=== PATIENT | female | born 2005 | race African-American/Black ===

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

== ENCOUNTER 2025-02-01 04:20 | Emergency (ER) | payer OTHER, SELFPAY ==
[2025-02-01 04:27] VITALS: BP 152/113; RESP 16; O2SAT 99
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
--- NOTE | 2025-02-01 04:43 | PC.NURSE ---
pt states she would like something for pain and to go home. MD at bedside.
[2025-02-01] MEDS: IBUPROFEN 400 MG TABLET 800 MG PO (04:47)
[2025-02-01] MEDS: ACETAMINOPHEN 500 MG TABLET 1000 MG PO (04:48)
--- OUTSIDE RECORDS SUMMARY | 2025-02-01 04:50 | XMS_ITS | Data Portability ---
Author Organization 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 Plan of Treatment Reminders Order Date Submit Date Provider Last Modified By Organization Details Last Modified Time Details Appointments None recorded . Lab HbA1c (hemoglo bin A1c), blood 2023 024 LEN BIANCA, [address] [place] [address], [address], [place], [address], 4 11:16:30 lipid panel, serum 2023 024 ALLEENE BIANCA, [address] [place] [address], [address], [place], [address], 4 11:16:28 pregnanc y test, urine 2023 024 lily In-Office Order, Internal Use Only DO Not Attach Compendium DO Not Attach Compendium, Do Not Delete/merge, [id number] 16:44:04 TSH, ultra-se nsitive, serum 2023 024 ALLEENE BIANCA, [address] [place] [address], [address], [place], [address], 4 11:16:29 vitamin D, 25-hydro xy, total, serum 2023 024 [facility], [address] [facility], [address], [place], [address], 11:16:31 Referral None recorded . Procedures None recorded . Surgeries None recorded . Imaging None recorded . Medication Orders None recorded . Patient TargetsNo targets recorded. Patient Instructions Encounter Date Encounter Id Patient Instructions Last Modified By Organization Details Last Modified Time 09/04/2023 [id number] A healthy lifestyle: care instructions [email or web address] Not available 09/04/2023 16:02:28 I was present and available in the family medicine clinic to discuss the patient's care during the appointment and the case was discussed with me. I agree with the resident's assessment and plan as documented. HL [email or web address] Not available 09/06/2023 16:22:40 Reason for Referral None Reported. Results Created Date Observation Date Name Description Value Unit Range Abnormal Flag Note LastModifiedBy Organization Detail LastModifiedTime 09/04/1909/05/2023 LIPID PANEL AND CHOL/ HDL RATIO cholesterol, total 189 mg/dL 100-16 9 above high normal Not Available [facility] ([facility]) [address] [place], [address], 09/05/2023 11:16:28 09/04/19 24 09/05/2023 LIPID PANEL AND CHOL/ HDL RATIO triglyceride s 79 mg/dL 0-89 Not Available [facility] ([facility]) [address] [place], [address], 09/05/2023 11:16:28 09/04/19 24 09/05/2023 LIPID PANEL AND CHOL/ HDL RATIO HDL cholesterol 45 mg/dL >39 Not Available [facility] ([facility]) [address] [place], [address], 09/05/2023 11:16:28 09/04/19 24 09/05/2023 LIPID PANEL AND CHOL/ HDL RATIO VLDL cholesterol shayan 15 mg/dL 5-40 Not Available [facility] ([facility]) [address] [place], [address], 09/05/2023 11:16:28 09/04/19 24 09/05/2023 LIPID PANEL AND CHOL/ HDL RATIO LDL chol calc ([facility]) 129 mg/dL 0-109 above high normal Not Available [facility] ([facility]) [address] [place], [address], 09/05/2023 11:16:28 09/04/19 24 09/05/2023 LIPID PANEL AND CHOL/ HDL RATIO LDL calc comment: - Test not perfo rmed Not Available [facility] ([facility]) [address] [facility], [place], [address], 09/05/2023 11:16:28 09/04/19 24 09/05/2023 LIPID PANEL AND CHOL/ HDL RATIO T. chol/HDL ratio 4.2 ratio 0.0-4. 4 T. Chol/ HDL Ratio Men Women 1/2 Avg.R isk 3.4 3.3 Avg.R isk 5.0 4.4 2X Avg.R isk 9.6 7.1 3X Avg.R isk 23.4 11.0 Not Available [facility] ([facility]) [address] [facility], [place], [address], 09/05/2023 11:16:28 09/04/19 24 09/05/2023 TSH RFX ON ABNOR MAL TO FREE T4 TSH 1.430 uIU/m L 0.450- 4.500 Not Available [facility] ([facility]) [address] [place], [address], 09/05/2023 11:16:29 09/04/19 24 09/05/2023 HEMOG LOBIN A1C hemoglobin A1C 5.7 % 4.8-5. 6 above high normal Predi abete s: 5.7 - 6.4 Diabe perez: >6.4 Glyce preston contr ol for adult s with diabe perez: <7.0 Not Available [facility] ([facility]) [address] [place], [address], 09/05/2023 11:16:30 09/04/19 24 09/05/2023 VITAM IN D, 25-HY DROXY vitamin D, 25-hydroxy 17.9 NG/mL 30.0-1 00.0 below low normal Vitam in D defic iency has been defin ed by the Insti tute of Medic ine and an Endoc rine Socie ty pract ice guide line as a level of serum 25-OH vitam in D less than 20 ng/mL (1,2) . The Endoc rine Socie ty went on to fur er defin e vitam in D insuf ficie ncy as a level betwe en 21 and 29 ng/mL (2). 1. IOM (Inst itute of Medic ine). 2009. Lucio ry refer ence intak es for calci um and D. Nelly saenz [place]: [facility] . 2. Alley ramon MF, Arnaud hurt [place], Guy off-F ericar i BEY, et al. Evalu ation , treat ment, and preve ntion of vitam in D defic iency : an Endoc rine Socie ty clini shayan pract ice guide line. JCEM. 2010; 96(7) :1911 -30. Not Available [facility] ([facility]) [address] [facility], [place], [address], 09/05/2023 11:16:31 09/04/19 24 09/04/2023 pregn kasey test, urine HCG negati ve Not Available In-Office Order Internal Use Only DO Not Attach Compendium DO Not Attach Compendium, Do Not Delete/merge, [id number] 09/04/2023 15:59:41 Result Notes None recorded. Problems Name Problem SNOMED Code Status Onset Date Resolution Date Notes Provider Name and Address Organization Details Recorded Time Polycystic ovary syndrome 234294372 Active 024 YOAV CUETO, Attn: Collin sun,[address], [place], [address] , [facility] 15:56:19 Problem Notes None recorded. Medical Equipment None Reported. Allergies No known drug allergies Medications Name Sig Start Date Stop Date Status Note LastModified by Organization Details LastModified Time cyclobenzapr ine 10 mg tablet active Not Available Not Available Not Available amoxicillin 500 mg capsule TAKE ONE CAPSULE BY MOUTH THREE TIMES DAILY X 7 DAYS active Not Available Not Available No t Available fluconazole 100 mg tablet TAKE 1 TABLET BY MOUTH ONCE A DAY FOR 2 DAYS active Not Available Not Available No t Available prednisone 10 mg tablet active Not Available Not Available Not Available lidocaine 4 % topical patch PLACE 1 PATCH OBN THE SKIN DAILY. REMOVE AND DISCARD PATCH WITHIN 12 HOURS OR DIRECTED active Not Available Not Available No t Available ketotifen 0.025 % (0.035 %) eye drops INSTILL 1 DROP IN BOTH EYES TWICE DAILY FOR ALLERGIC PINK EYE active Not Available Not Available No t Available methylpredni solone 4 mg tablets in a dose pack FOLLOW PACKAGE DIRECTIONS active Not Available Not Available N ot Available fluticasone propionate 50 mcg/actuatio n nasal spray,suspen jaiden SHAKE LIQUID AND USE 2 SPRAYS IN EACH NOSTRIL DAILY active Not Available Not Available No t Available amoxicillin 500 mg-potassium clavulanate 125 mg tablet TAKE 1 TABLET BY MOUTH TWICE DAILY FOR 7 DAYS active Not Available Not Available No t Available Vitals Date Recorded Body height Body mass index (BMI) Body mass index (BMI) [Percentile] Per age and sex Body weight Body temperature Heart rate Oxygen saturation Oxygen saturation in Arterial blood by Pulse oximetry Systolic And Diastolic Provider Name and Address Organization Details Last Updated DateTime 4 156.85 cm 43.1 kg/m2 99.61 % 572640. 82 g 97.8 [degF] 80 /min 98 % 98 % 117/82 mm[Hg] Libia Gilbert MA [facility] 4 15:45:34 Date Recorded Body height Provider Name an d Address Organization Details Last Updated DateTime 11/13/2023 156.85 cm Oneida Barrett MA [facility] 11/13/2023 10:18:50 Social History Question Answer Notes LastModified by Organizat ion Details LastModified Time Tobacco Smoking Status Never Smoker Oneida Barrett MA null, [facility] 11/13/2023 10:14:52 What Was The Date Of Your Most Recent Tobacco Screening? 11/13/2023 [email or web address] Information not available 11/13/2023 Sex: Unknown Functional Status None recorded. Mental Status None recorded. Family History Nothing Reported. Medical History No medical history recorded. Gynecological HistoryNo gynecological history recorded. Obstetrics History GPAL:G 0 P 0 0 0 0 Immunizations Vaccine Type Date Status Note Provider Nam e and Address Organization Details Recorded Time Hib, unspecified formulation 7 completed YOAV LYNN DO Attn: [employer] [place], [place], [address] [place] [address] [place] [facility] 09/04/2023 16:20:30 meningococcal B, OMV 4 completed YOAV LYNN DO Attn: [employer] [facility], [place], [place], [address] [place] [address] [place] [facility] 09/04/2023 16:20:30 HPV9 1 completed YOAV LYNN DO Attn: [employer] [place], [address] [place] [address] [place] [facility] 09/04/2023 16:20:30 HPV9 6 completed YOAV LYNN DO Attn: [employer] [place], [address] [place] [address] [place] [facility] 09/04/2023 16:20:30 IPV 8 completed YOAV LYNN DO Attn: [employer] [place], [address] [place] [address] [place] [facility] 09/04/2023 16:20:30 MMR 0 completed YOAV LYNN DO Attn: [employer] [place], [address] [place] [address] [place] [facility] 09/04/2023 16:20:30 MMRV 7 completed YOAV LYNN DO Attn: [employer] [place], [address] [place] [address] [place] [facility] 09/04/2023 16:20:30 meningococcal conjugate quadrivalent, MenACWY-TT (MCV4) 4 completed YOAV LYNN DO Attn: [employer] [facility], [place], [place], [address] [place] [address], [place] [facility] 09/04/2023 16:20:30 pneumococcal conjugate PCV 7 8 completed YOAV LYNN DO Attn: [employer] [facility], [place], [place], [address] [place] [address], [place] [facility] 09/04/2023 16:20:30 DTaP-IPV 0 completed YOAV LYNN DO Attn: [employer],[address] [facility], [place], [place], [address] [place] [address], [place] [facility] 09/04/2023 16:20:30 Tdap 6 completed YOAV LYNN DO Attn: [employer],[address] [facility], [place], [place], [address] [place] [address], [place] [facility] 09/04/2023 16:20:30 varicella 5 completed YOAV LYNN DO Attn: [employer],[address] [facility], [place], [place], [address] [place] [address], [place] [facility] 09/04/2023 16:20:30 Influenza, split virus, trivalent, preservative 5 completed YOAV LYNN DO Attn: [employer] [facility], [place], [place], [address] [place] [address], [place] [facility] 09/04/2023 16:20:30 influenza, split (incl. purified surface antigen) 0 completed YOAV LYNN DO Attn: [employer],[address] [facility], [place], [address] [place] [address], [place] [facility] 09/04/2023 16:20:31 Meningococcal MCV4O 5 completed YOAV LYNN DO Attn: [employer],[address] [facility], [place], [address] [place] [address], [place] [facility] 09/04/2023 16:20:31 DTaP 8 completed YOAV LYNN DO Attn: [facility],[address] [facility], [place], [address], [place] [facility] 09/04/2023 16:20:31 DTaP 9 completed YOAV LYNN DO Attn: [facility],[address] [facility], [place], [address], [place] [facility] 09/04/2023 16:20:31 DTaP-Hep B-IPV 7 completed YOAV LYNN DO Attn: [employer],[address] [facility], [place], [address], [place] [facility] 09/04/2023 16:20:31 Influenza, split virus, quadrivalent, PF 2 completed YOAV LYNN DO Attn: [employer],[address] [facility], [place], [address], [place] [facility] 09/04/2023 16:20:31 Past Encounters Encounter ID Performer Location Encounter Start Date Encounter Closed Date Diagnosis/Indication Diagnosis SNOMED-CT Code Diagnosis ICD10 Code Diagnosis IMO Codes Diagnosis Note [id number] Warren Paiz MD [facility] [address] [address] 09/04/2023 15:30:54 09/07/2023 12:39:04 Polycystic ovary syndrome 432050727 E28.2 Unclear if she meets 2/3 of [place] criteriaPa tient appears to be anovulator y, concern for given sexual hx- Will check A1c- check test- Discussed options for treatment of PCOS being mainly weight loss with possible metformin use and hormonal control. Patient contemplat ing patch Fatigue 64436649 R53.83 Occasional Will check TSH and Vit D levels- need to evaluate quality of sleep at next visit Obesity 486790307 E66.9 As discussed aboveBMI 43.1 At [facility] ed risk of cardiovascular disease 3642703279 2242559 Z91.89 Due for labs given risk Health Concerns Section Related Observation LastModified by Organization Detai ls LastModified Time None Recorded Concern Status LastModified by Organization Details LastModified Time None Recorded Advance Directives Directive None Recorded Payers Insurance Date Sequence Insurance Name Policy Number Policy Shankar Covered Member ID Shankar Member ID Guarantor Name 11/10/2023 1 [facility] (MEDICAID HMO) [id number] Kristie Bazan [id number] Ceci Cisneros Notes Date Note Type Note Provider Name and Address Organization Details Recorded Time 09/04/2023 text/html ROS as noted in the HPI Patient presents having been diagnosed with PCOS a year ago and she is interested in learning more about it and possibly treating it.She reports having sx of occasional fatigue and was having monthly periods, but since May has not had a period.She is sexually active and uses protection sometimesOf PCOS sx she reports semi-irregular periods (generally once a month but not in a 28d cycle, pt unsure of exact days), she denies hyperandrogenism (male pattern hair) and does not recall an US being performed. Unsure of labs that were performed.Other than feeling occasionally fatigued her main concern is her weight and concerned about how PCOS would affect her body. Interested in starting medication if applicable. Lupe Asher MD Attn: [employer],[address] [facility], [place], [address], [facility] 09/06/2023 16:22:47 OBGyn Episode No OBEpisode recorded.
--- OUTSIDE RECORDS SUMMARY | 2025-02-01 04:50 | XMS_ITS | Clinical Summary ---
Author Organization [place] [id number] [facility] Address [address] [place] [address] Care Team Providers Care Hr Receptionist Name Role Phone No, Physician Primary Care Provider [phone] Allergies No known active allergies Medications amoxicillin-cla vulanate (AUGMENTIN) 875-125 mg per tablet Take 1 tablet by mouth every 12 (twelve) hours 14 tablet 5 Active triamcinolone (KENALOG) 0.1 % ointment Apply topically 2 (two) times a day 30 g 2 5 Active fluconazole (DIFLUCAN) 150 mg tablet Take 1 tablet (150 mg total) by mouth once for 1 dose 1 tablet 5 01/04/20 25 Active Problems No known active problems Encounters Date Type Department Care Team Description 01/03/2025 Results Follow-Up [address] [address] Mary Bazan DO Vaginitis panel Vaginal, BLOOD MISC TO [place], BLOOD MISC TO [place], N. gonorrhoeae/C. trachomatis Amplification Endocervical 01/02/2025 3:00 PM CDT - 01/02/2025 11:59 PM CDT Hospital Encounter [place] [id number] [place] [address] Acute vaginitis; Screen for sexually transmitted diseases; Bacterial vaginosis Discharge Disposition: Discharge to home or self care 01/02/2025 2:00 PM CDT Office Visit [facility] [address] [place] [address] Mary Bazan, Encounter for annual routine gynecological examination (Primary Dx); Bacterial vaginosis; Screen for sexually transmitted diseases; Acute vaginitis; Missed menses 11/13/2024 10:30 PM CDT - 11/14/2024 12:52 AM CDT Emergency [facility] [address] [place] [address] Abdominal pain (Primary Dx) Discharge Disposition: Discharge to home or self care from Last 3 Months Immunizations Immunization Administration Dates Next Due DTaP 11/08/2008,10/25/2007 DTaP / Hep B / IPV 03/01/2007 DTaP / IPV 10/15/2009 HPV9 10/06/2020,07/15/2016,10/21/2015 Hep A, Pediatric 09/15/2017,11/07/2016 Hep B, Adolescent or Pediatric 07/15/2016,2015 HiB 03/01/2007 IPV 10/25/2007 Influenza, Quadrivalent, Spl it, Preservative Free, Intramuscular 01/24/2022 Influenza, Split 01/30/2010 Influenza, Trivalent, IM (MDV) 02/17/2015 MMR 10/15/2009 MMRV 03/01/2007 Meningococcal B, OMV (Bexsero) 05/09/2023 Meningococcal Conjugate (Menveo) 09/02/2014 Meningococcal MCV4P (Menactra) 05/09/2023,2014 Meningococcal Polysaccharide (Menomune) 11/08/19 17 Pneumococcal Conjugate 7-Valent 10/25/2007 Tdap 10/21/2015 Varicella 09/02/2014 Medical History Medical History Date Comments PCOS (polycystic ovarian syndrome) Family History Medical History Relation Name Comments Constipation Mother Relation Name Status Comments Mother Social History Tobacco Use Types Packs/Day Years Used Date Smoking Tobacco: Never Smokeless Tobacco: Never Tobacco Cessation:Counseling Given: Not Answered Personal Safety Answer Date Recorded Have you ever been in or are you currently in a harmful physical or emotional relationship or is someone making you feel afraid or unsafe? 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 Gender Identity Not on file Sexual Orientation Not on file Obstetrics History Para Term AB IAB SAB Ectopic Multiple Livin g Live Births 1 0 0 0 1 1 0 0 0 0 0 Date Outcome GA Total Labor Labor/2nd/3rd Weight Sex Type Anes PTL Melba A1 A5 Name Clin IAB Growth Chart Information Age Height Weight Jdylzt-snq-ignf th Percentile BMI Percentile Head Circum Head Circum Percentile Date 19 years 157.5 cm (5' 2) 111.1 kg (245 lb) 99.61%* 2024 19 years 109.7 kg (241 lb 13.5 oz) 2024 19 years 157.5 cm (5' 2) 2024 16 years 98.5 kg (217 lb 2.5 oz) 2021 14 years 154.9 cm (5' 1) 93.6 kg (206 lb 5.6 oz) 99.63%* 2020 12 years 152.4 cm (5') 59 kg (130 lb) 94.81%* 2017 12 years 65.8 kg (145 lb 1 oz) 2017 8 years 50.1 kg (110 lb 7.2 oz) 2013 8 years 46.8 kg (103 lb 2.8 oz) 2013 7 years 37.1 kg (81 lb 12.7 oz) 2012 * [facility] (Girls, 2-20 Years) Last Filed Vital Signs Vital Sign Reading Time Taken Comments Blood Pressure 128/88 01/02/2025 2:26 PM CDT Pulse 81 11/14/2024 12:45 AM CDT Temperature 37 C (98.6 F) 11/13/2024 8:59 PM CDT Respiratory Rate 18 11/14/2024 12:45 AM CDT Oxygen Saturation 99% 11/14/2024 12:45 AM CDT Inhaled Oxygen Concentration - - Weight 111.1 kg (245 lb) 01/02/2025 2:26 PM CDT Height 157.5 cm (5' 2) 01/02/2025 2:26 PM CDT Body Mass Index 44.81 01/02/2025 2:26 PM CDT Plan of Treatment Health Maintenance Due Date Last Done Comments Depression Screening 2005 Hepatitis C Screening 2005 Meningococcal B Vaccine (2 o f 2 - Bexsero SCDM 2-dose series) 11/07/2023 05/09/2023 Influenza Vaccine (#1) 2024 , 02/17/2015, 01/30/2010 DTaP/Tdap/Td Vaccine (6 - Td or Tdap) 10/20/2025 10/21/2015, 10/15/2009, 11/08/2008, Additional history exists Chlamydia and Gonorrhea (GC/ CT) Screening 01/02/2026 01/02/2025, 12/08/2021 Regular Well Visit/Exam 18-64 01/02/2026 01/02/2025 Pneumococcal vaccine <65 Completed 10/25/2007 Varicella Vaccines Completed 09/02/2014, 03/01/2007 Hepatitis B Screening Completed 07/15/2016 , 10/28/2015, 03/01/2007 HPV Vaccines Completed 10/06/2020, 06/26, 10/21/2015 Meningococcal Vaccine Completed 05/09/2023 , 11/07/2016, 09/13/2014, Additional history exists Procedures Procedure Name Priority Date/Time Associated Diagnosis Comments BLOOD MISC TO [place] Routine 01/02/2025 8: 48 PM CDT BLOOD MISC TO [place] Routine 01/02/2025 8: 48 PM CDT POCT HCG, URINE Routine 01/02/2025 3:06 PM CDT Missed menses N. GONORRHOEAE/C. TRACHOMATIS AMPLIFICATION Routine 01/02/2025 3:00 PM CDT Screen for sexually transmitted diseases VAGINITIS PANEL Routine 01/02/2025 3:00 PM CDT Acute vaginitis CT ABDOMEN PELVIS W CONTRAST ED 11/13/2024 11:39 PM CDT POCT HCG, URINE Routine 11/13/2024 10:03 PM CDT URINALYSIS, MICROSCOPIC ONLY STAT 11/13/2024 10:02 PM CDT URINALYSIS AND REFLEX TO MICROSCOPIC AND CULTURE STAT 11/13/2024 10:02 PM CDT EGFR STAT 11/13/2024 9:55 PM CDT DIFFERENTIAL AUTO STAT 11/13/2024 9:5 5 PM CDT LIPASE STAT 11/13/2024 9:55 PM CDT COMPREHENSIVE METABOLIC PANEL STAT 11/13/2024 9:55 PM CDT CBC WITH AUTO DIFFERENTIAL STAT 11/13/2024 9:55 PM CDT from Last 3 Months Results * BLOOD MISC TO [place] (01/02/2025 8:48 PM CDT) Test name, chem [facility] [place] ref Lab Misc See Footnote [facility] Comment: Test Result Flag Unit RefValue Mycoplasma genitalium, TMA, Varies Specimen Source: VAGINAL Mycoplasma genitalium Result Negative Negative ADDITIONAL INFORMATION This report is intended for use in clinical monitoring and management of patients. It is not intended for use in medical-legal applications. Test Performed by: [facility] - [address] [address] Laminating Machine Operator: Maximo Bolaños Ph.D.; CLIA# [id number] Blood 01/02/2025 8:48 PM CDT 01/03/2025 7:35 AM CDT Narrative [facility] - 01/05/2025 7:42 AM CDT Mycoplasma genitalium, TMA, Varies Mary Bazan LAB BLOOD ORDERABLES Fi nal Result Performing Organization Address City/[facility]/ZIP Co de Phone Number [facility] [address] [place] [address] [facility] * BLOOD MISC TO [place] (01/02/2025 8:48 PM CDT) Test name, chem URRP [facility] Lab Misc See Footnote ADALBERTO SEN Comment: Test Result Flag Unit RefValue Ureaplasma PCR Specimen source Vaginal Ureaplasma urealyticum Negative Not Applicable PCR Ureaplasma parvum PCR Negative Not Applicable ADDITIONAL INFORMATION This test was developed and its performance characteristics determined by [facility] in a manner consistent with CLIA requirements. This test has not been cleared or approved by the U.S. Food and Drug Administration. Test Performed by: [facility] [place] [address] Laminating Machine Operator: Maximo Bolaños Ph.D.; CLIA# [id number] Blood 01/02/2025 8:48 PM CDT 01/03/2025 7:32 AM CDT Narrative [facility] - 01/06/2025 6:51 PM CDT Ureaplasma PCR Mary Bazan DO LAB BLOOD ORDERABLES Fi nal Result Performing Organization Address [facility]/ZIP Co de Phone Number [facility] [place] [address] [place] [address] [facility] * POCT hCG, urine (01/02/2025 3:06 PM CDT) [facility] HCG, ur, POC Negative Negative Lot Number [id number] QC Backgroud Clear Acceptable QC Control Line Acceptable Urine 01/02/2025 3:06 PM CDT Mary Bazan DO POINT OF CARE TEST ORDE RABLES Final Result * N. gonorrhoeae/C. trachomatis Amplification Endocervical (01/02/2025 3:00 PM CDT) [facility] C. trachomatis Not Detected [facility] Comment:Testing performed by : [facility], [address] [place] [address]., [id number] N. gonorrhoeae Not Detected [facility] Comment: Interpretive Data This assay detects Chlamydia trachomatis and Neisseria gonorrhoeae by nucleic acid amplification testing (NAAT). This assay has been cleared by the [place] Food and Drug administration. The performance characteristics of this test have been verified by the [facility] Molecular Infectious Disease laboratory. The performance characteristics of this test have not been evaluated in individuals less than 14 years of age. Current Interpretive Data was last revised on 2023. Testing performed by: [facility], [address] [place] [address]., [address] Endocervical 01/02/2025 3:00 PM CDT 01/03/2025 10:45 AM CDT Mary Bazan DO LAB MICROBIOLOGY - GENE RAL ORDERABLES Final Result [place] [address] [place] [address] [facility] * (ABNORMAL) Vaginitis panel Vaginal (01/02/2025 3:00 PM CDT) [facility] Bacterial Vaginosis Not Detected Not Detected Comment:A negative result do es not preclude a possible infection. Results should be considered in conjunction with clinical presentation to determine the disease status. Debbie group Detected(A) Not Detected [facility] Comment:Debbie species can be present as commensal organisms in women; results should be considered in conjunction with clinical presentation to determine the disease status. Debbie glabrata/ krusei Not Detected Not Detected [facility] Trichomonas DNA Not Detected Not Detected [facility] Vaginal 01/02/2025 3:00 PM CDT 01/02/2025 9:03 PM CDT Narrative [facility] - 01/02/2025 10:59 PM CDT The [employer] Xpert Xpress MVP test detects DNA targets from anaerobic bacteria associated with bacterial vaginosis, Debbie species associated with vulvovaginal candidiasis, and Trichomonas vaginalis by nucleic acid amplification testing (NAAT). Results should be interpreted in conjunction with other clinical data. This test cannot be used to assess therapeutic success or failure because target nucleic acids may persist following antimicrobial therapy. This test has been cleared by the [place] Food and Drug Administration to aid in the diagnosis of vaginal infections in symptomatic women ages 14 and older. The performance characteristics of this test have been verified by the [facility]. Mary Bazan DO LAB MICROBIOLOGY - GENE [facility] ORDERABLES Final Result [facility] [address] [place] [address] * CT Abdomen Pelvis W Contrast (11/13/2024 11:39 PM CDT) Anatomical Region Laterality Modality Body N/A Computed Tomogra phy 11/13/2024 11:4 2 PM CDT Narrative 11/13/2024 11:49 PM CDT EXAM DESCRIPTION: CT ABDOMEN PELVIS W CONTRAST REASON FOR STUDY: Abdominal pain, acute, nonlocalized c/o generalized Abdominal pain accompanied by constipation and rectal pain started 2 days ago. Pt reports pain scale 6/10, described as intermittent aching and pressure. Hx of constipation. Pt reports administering stool softener, enema, magnesium citrate and linzess today with no relief. Pt denies fever, chills, N/V/D or urinary symptoms. Pt aleert and oriented x 4 TECHNIQUE: CT scan of the abdomen and pelvis performed with intravenous and without oral contrast using helical scanning technique with dynamic intravenous contrast injection. Reconstructed coronal and sagittal MPR images reviewed. All images stored on PACS. Automated exposure control was used as a dose optimization technique for this examination. CONTRAST TYPE/DOSE: 90mL of IOVERSOL 350 MG IODINE/ML INTRAVENOUS SYRINGE injected via intravenous COMPARISON: None FINDINGS: LOWER CHEST: No significant pulmonary abnormalities. No effusion. LIVER: Normal size. No identified cystic or solid masses. GALLBLADDER: No stones identified. No wall thickening or inflammatory changes. BILE DUCTS: No intrahepatic or extrahepatic ductal dilatation. SPLEEN: Normal size. No focal lesions. PANCREAS: No identified cystic or solid masses. No significant calcifications. No adjacent inflammation or peripancreatic fluid collections. Pancreatic duct not dilated. ADRENALS: Normal. KIDNEYS/URINARY TRACT: No identified significant cystic or solid masses. No visualized stones. No hydronephrosis or hydroureter. Symmetric enhancement. Urinary bladder is unremarkable. GI: No dilated bowel loops. No obvious wall thickening. Normal appendix. No significant diverticular disease. PERITONEUM: No ascites or free air. RETROPERITONEUM: No mass or adenopathy. REPRODUCTIVE: No significant abnormality. VASCULATURE: No abdominal aortic aneurysm. MUSCULOSKELETAL: No significant abnormality. OTHER: No other abnormality. IMPRESSION: No acute finding. THIS IS AN ELECTRONICALLY VERIFIED FINAL REPORT 11/13/2024 11:49 PM - Electronically signed by Gamaliel Young M.D. KT T: Report ID: [id number] Reading Location: [place] [address] Procedure Note Gamaliel Young MD - 11/13/2024 EXAM DESCRIPTION: CT ABDOMEN PELVIS W CONTRAST REASON FOR STUDY: Abdominal pain, acute, nonlocalized c/o generalized Abdominal pain accompanied by constipation and rectal pain started 2 days ago. Pt reports pain scale 6/10, described as intermittent aching and pressure. Hx of constipation. Pt reports administering stool softener, enema, magnesium citrate and linzess today with no relief. Pt denies fever, chills, N/V/D or urinary symptoms. Pt aleert and oriented x4 TECHNIQUE: CT scan of the abdomen and pelvis performed with intravenousand without oral contrast using helical scanning technique with dynamic intravenous contrast injection. Reconstructed coronal and sagittal MPRimages reviewed. All images stored on PACS. Automated exposure control was usedas a dose optimization technique for this examination. CONTRAST TYPE/DOSE: 90mL of IOVERSOL 350 MG IODINE/ML INTRAVENOUSSYRINGE injected via intravenous COMPARISON: None FINDINGS: LOWER CHEST: No significant pulmonary abnormalities. Noeffusion. LIVER: Normal size. No identified cystic or solid masses. GALLBLADDER: No stones identified. No wall thickening or inflammatory changes. BILE DUCTS: No intrahepatic or extrahepatic ductal dilatation. SPLEEN: Normal size. No focal lesions. PANCREAS: No identified cystic or solid masses. No significant calcifications. No adjacent inflammation or peripancreatic fluidcollections. Pancreatic duct not dilated. ADRENALS: Normal. KIDNEYS/URINARY TRACT: No identified significant cystic or solid masses.No visualized stones. No hydronephrosis or hydroureter. Symmetricenhancement. Urinary bladder is unremarkable. GI: No dilated bowel loops. No obvious wall thickening. Normalappendix. No significant diverticular disease. PERITONEUM: No ascites or free air. RETROPERITONEUM: No mass or adenopathy. REPRODUCTIVE: No significant abnormality. VASCULATURE: No abdominal aortic aneurysm. MUSCULOSKELETAL: No significant abnormality. OTHER: No other abnormality. IMPRESSION: No acute finding. THIS IS AN ELECTRONICALLY VERIFIED FINAL REPORT 11/13/2024 11:49 PM - Electronically signed by Gamaliel Young M.D. KT T: Report ID: [id number] Reading Location: [place] [address] Ritu Aguirre POWER MANAGER IMG CT PROCEDURES Final Result * POCT hCG, urine (11/13/2024 10:03 PM CDT) Pathologist [facility] HCG, ur, POC Negative Negative Lot Number [id number] QC Backgroud Clear Acceptable QC Control Line Acceptable Urine 11/13/2024 10:0 3 PM CDT Sean Coronel DO POINT OF CARE TEST ORDERABLES Final Result * (ABNORMAL) Urinalysis reflex to microscopic and culture Urine (11/13/2024 10:02 PM CDT) Color, ur Yellow Yellow Clarity, ur Cloudy(A) Clear CERNER Specific gravity, ur 1.016 1.003 - 1.030 [facility] pH, urine 7.5 [facility] Comment: Interpretive Data U rine pH is affected by diet, medications, systemic acid-base disturbances, and renal tubular function. pH may affect urinary stone formation. For example, urine pH below 6.0 may help reduce the tendency for calcium phosphate stones and pH greater than 6.0 may reduce the tendency for uric acid stone formation. Source: [facility] Current Interpretive Data was last revised on 2017 Protein, ur ql Negative Negative [facility] Glucose, ur ql Negative Negative [facility] Ketones, ur Negative Negative [facility] Bilirubin, ur Negative Negative [facility] Blood, ur 1+(A) Negative [facility] Urobilinogen, ur <2.0 <2.0 mg/dL [facility] Nitrite, ur Negative Negative [facility] Leukocyte esterase, ur Negative Negative [facility] UA reflex comment Reflex to microscopic UA will be performed. [facility] Urine 11/13/2024 10:0 2 PM CDT 11/13/2024 10:08 PM CDT Sean Coronel DO LAB MICROBIOLOGY - GENERAL ORD ERABLES Final Result Performing Organization Address [facility] de Phone Number [address] [place] [address] * Urinalysis, microscopic only (11/13/2024 10:02 PM CDT) WBC, ur 0-5 0 - 5 /HPF RBC, ur 0-2 0 - 2 /HPF [facility] Epithelial cells, squamous, ur 1-5 0 - 5 /HPF [facility] Culture Reflex Comment Reflex conditions for urine culture (WBC >10) not met. [facility] Urine 11/13/2024 10:0 2 PM CDT 11/13/2024 10:08 PM CDT us Sean Coronel DO LAB URINE ORDERABLES Final Res ult Performing Organization Address [facility] Co de Phone Number [facility] [address] [facility] [place] [address] * eGFR (11/13/2024 9:55 PM CDT) [facility] eGFR >90 >=60 mL/min/1. 73 m2 Comment: Interpretive Data Reference Interval Normal >/= 90 mL/min/1.73m2 Mildly decreased* 60 - 89 mL/min/1.73m2 Mildly to moderately decreased 45 - 59 mL/min/1.73m2 Moderately to severely decreased 30 - 44 mL/min/1.73m2 Severely decreased 15 - 29 mL/min/1.73m2 Kidney Failure < 15 mL/min/1.73m2 *Relative to young adult level Estimated glomerular filtration rate is determined by the 2020 CKD-EPI equation recommended by the National Kidney Foundation (A Unifying Approach to GFR Estimation: Recommendations of the NKF-ASK Task Force on Reassessing the Inclusion of Race in Diagnosing Kidney Disease, JASN 2020). The CKD-EPI equation should not be used for patients with unstable renal function and has not been validated in children and those over 70. Current interpretive data was last reviewed 2021. Blood 11/13/2024 9:55 PM CDT 11/13/2024 10:08 PM CDT us Sean Coronel DO LAB BLOOD ORDERABLES Final Res ult [facility] [address] [facility] Department [place] [address] * Differential, auto (11/13/2024 9:55 PM CDT) [facility] Neutrophil abs 5.83 1.50 - 6.50 K/cumm Imm gran abs 0.04 0.00 - 0.10 K/cumm [facility] Lymphocyte abs 2.31 0.80 - 3.30 K/cumm [facility] Monocyte abs 0.44 0.20 - 0.80 K/cumm [facility] Eosinophil abs 0.17 0.00 - 0.50 K/cumm [facility] Basophil abs 0.05 0.00 - 0.10 K/cumm [facility] Neutrophil pct 65.9 % [facility] Comment: Interpretive Data Percent cell count reference ranges are not reported, since discordance with absolute values may lead to misinterpretation of CBC data. Current Interpretive Data was last revised on 2017. Imm gran pct 0.5 % [facility] Comment: Interpretive Data Percent cell count reference ranges are not reported, since discordance with absolute values may lead to misinterpretation of CBC data. Current Interpretive Data was last revised on 2017. Lymphocyte pct 26.1 % [facility] Comment: Interpretive Data Percent cell count reference ranges are not reported, since discordance with absolute values may lead to misinterpretation of CBC data. Current Interpretive Data was last revised on 2017. Monocyte pct 5.0 % [facility] Comment: Interpretive Data Percent cell count reference ranges are not reported, since discordance with absolute values may lead to misinterpretation of CBC data. Current Interpretive Data was last revised on 2017. Eosinophil pct 1.9 % [facility] Comment: Interpretive Data Percent cell count reference ranges are not reported, since discordance with absolute values may lead to misinterpretation of CBC data. Current Interpretive Data was last revised on 2017. Basophil pct 0.6 % [facility] Comment: Interpretive Data Percent cell count reference ranges are not reported, since discordance with absolute values may lead to misinterpretation of CBC data. Current Interpretive Data was last revised on 2017. Blood 11/13/2024 9:55 PM CDT 11/13/2024 10:08 PM CDT us Sean Coronel DO LAB BLOOD ORDERABLES Final Res ult [facility] [address] [facility] Department of Laboratories [place], [place] [id number] * CBC with auto differential (11/13/2024 9:55 PM CDT) WBC 8.84 3.80 - 9.90 K/cumm Hgb 13.1 11.9 - 15.5 g/dL [facility] Hct 40.5 35.6 - 45.5 % [facility] Plt 306 150 - 400 K/cumm [facility] MPV 10.7 9.1 - 12.3 fL [facility] RBC 4.59 3.90 - 5.20 M/cumm [facility] MCV 88.2 81.3 - 96.4 fL [facility] MCH 28.5 27.1 - 33.3 pg [facility] MCHC 32.3 32.3 - 35.7 g/dL [facility] RDW CV 14.2 11.1 - 14.9 % [facility] RDW SD 45.6 35.7 - 48.1 fL [facility] NRBC abs 0.00 0.00 - 0.01 K/cumm [facility] Blood Venous blood specimen / Unknown 11/13/2024 9:55 PM CDT 11/13/2024 10:08 PM CDT Sean Coronel LAB BLOOD ORDERABLES Final Res ult Performing Organization Address [facility] Co de Phone Number [address] [place] [address] * Lipase (11/13/2024 9:55 PM CDT) [facility] Lipase 38 10 - 99 Units/L Blood Venous blood specimen / Unknown 11/13/2024 9:55 PM CDT 11/13/2024 10:08 PM CDT Sean Coronel LAB BLOOD ORDERABLES Final Res ult Performing Organization Address [facility] Co de Phone Number [address] [employer] [place] [address] * (ABNORMAL) Comprehensive metabolic panel (11/13/2024 9:55 PM CDT) [facility] Sodium 138 135 - 145 mmol/L Potassium, pl 3.8 3.3 - 4.9 mmol/L [facility] Chloride 104 97 - 110 mmol/L [facility] CO2 23 22 - 32 mmol/L [facility] Anion gap 11 2 - 15 mmol/L [facility] BUN 10 6 - 25 mg/dL [facility] Creatinine 0.78 0.60 - 1.10 mg/dL [facility] Glucose 96 70 - 199 mg/dL [facility] Comment: Interpretive Data Fasting glucose >/= 126 mg/dl is diagnostic for diabetes. Fasting is defined as no caloric intake for at least 8 hours. Fasting glucose between 100 mg/dl to 125 mg/dl is diagnostic of prediabetes. In a patient with classic symptoms of hyperglycemia or hyperglycemic crisis, a random glucose >/= 200 mg/dl is diagnostic for diabetes. In the absence of unequivocal hyperglycemia, results should be confirmed by repeat testing. The classification and Diagnosis of Diabetes Diabetes Care 2021; 46: [id number]. Current interpretive data was last revised 2022. Calcium 9.5 8.5 - 10.3 mg/dL [facility] Bilirubin, total 0.4 0.1 - 1.2 mg/dL [facility] Protein, pl 7.4 6.5 - 8.5 g/dL [facility] Albumin 4.1 3.5 - 5.0 g/dL [facility] Alk phos 58(L) 70 - 260 Units/L [facility] ALT 8 7 - 45 Units/L [facility] AST 14 10 - 45 Units/L [facility] Blood 11/13/2024 9:55 PM CDT 11/13/2024 10:08 PM CDT Sean Coronel DO LAB BLOOD ORDERABLES Final Res ult [facility] [address] [facility] Department of Laboratories [place], [place] [id number] from Last 3 Months Insurance [facility] Care Teams Hr Receptionist Relationship Specialty Start Date End Date No, Physician PCP - General 11/13/24
--- OUTSIDE RECORDS SUMMARY | 2025-02-01 04:50 | XMS_ITS | Clinical Summary ---
Author Organization [facility] Address [address] [address] Care Team Providers Care Greenhouse Specialist Name Role Phone Herman Beach MD Primary Care Provider [phone] Source Comments [facility],non-owned Affiliates and Associated Physician Practices is amultiple site organization consisting of ambulatory clinics and hospital sitesin [place], [place], [place] and [place]. This disclosure is being madepursuant to the Care Everywhere program and may not contain all information available regarding this patient. Last updated 17.[facility] Allergies No known active allergies Medications * Be aware that medications may not be up to date on this document. Alwaysverify current medications with the patient. acetaminophen (TYLENOL) 160 MG/5ML SOLN solution Take 5 mL by mouth every 4 hours as needed. Active naproxen (NAPROSYN) 500 MG tablet Take 1 (one) tablet by mouth 2 times daily as needed (migraine) 20 tablet 3 12/31/19 21 Active ondansetron, disintegrating, (ZOFRAN ODT) 8 MG tablet Take 1 (one) tablet by mouth every 8 hours as needed for Nausea/Vomiting Allow tablet to dissolve on the tongue 20 tablet 3 12/31/19 21 Active SUMAtriptan (IMITREX) 50 MG tablet Take 1 (one) tablet by mouth 2 times daily as needed for Migraine 9 tablet 3 12/31/19 21 Active ibuprofen (MOTRIN) 600 MG tablet Take 1 (one) tablet by mouth every 6 hours as needed for Pain 30 tablet 10/16/19 22 Active ketotifen (Zaditor) 0.035 % ophthalmic solutionIndication s:Allergic Conjunctivitis Instill 1 (one) drop into both eyes 2 times daily Reasons: Allergic Conjunctivitis 10 mL 06/20/19 24 Active fluticasone propionate (Flonase) 50 MCG/ACT nasal spray [place] 2 (two) sprays into each nostril once daily 16 g 06/20/19 24 Active Active Problems Problem Noted Date Diagnosed Date Vaginal lesion 12/31/2020 Assessment & Plan (05/24/2021 12:59 PM CREDIT COORDINATOR): Patient noted two skin colored bumps in pubic area that have appeared in the last couple weeks after shaving. On exam, two slightly raised 1cm bumps in pubic area. No crusting, blistering, or ulceration. Slight tenderness to palpation. Denies itching, discharge. Likely ingrown hairs. - Reassurance provided - Monitor for any changes including blistering, ulceration, or signs of infection. - Follow-up as needed Nailbed laceration, finger 12/31/2020 Assessment & Plan (05/24/2021 1:00 PM CREDIT COORDINATOR): Nailbed laceration on L hand sustained while playing basketball yesterday. Nail will likely fall off on its own without intervention. - Reassurance provided - Discussed option to seek emergent care to be evaluated for surgical treatment/reconstruction Sexually active at young age 1012/31/2020 Assessment & Plan (05/24/2021 12:59 PM CREDIT COORDINATOR): Patient is sexually active with male partners. Negative STI screen 1 year ago. Uses condoms for protection. Not currently on control, and not interested in control today. - Discussed safe sex practices - Chlamydia, Gonorrhea, Syphilis, HIV, Trichomonas screen PCOS (polycystic ovarian syndrome) 12/31/2020 Assessment & Plan (05/24/2021 1:01 PM CREDIT COORDINATOR): Diagnosed with PCOS one year ago by LASER MACHINE OPERATOR in [place] due to symptoms of heavy periods, weight gain, acne and hirsutism. Never had labs done per mom. Previously tried control but stopped due to mood swings and [employer] Inositol. Stopped taking all medications and supplements in October. No longer following with LASER MACHINE OPERATOR, requesting new recommendation. - Referral to pediatric gynecology - Total testosterone, DHEA, hydroxyprogesterone 17, LH, prolactin, vitamin D-25 hydroxy Chronic migraine without aur a without status migrainosus, not intractable 12/31/2020 Assessment & Plan (05/24/2021 1:01 PM CREDIT COORDINATOR): Patient had appointment with pediatric neurology yesterday and diagnosed with migraine without aura. Prescribed sumatriptan and naproxen for headache onset, zofran for associated nausea, and melatonin for prevention. Has not had the chance to picking tech prescriptions yet, but plan to today. - Medication regimen as prescribed by neurology - Monitor headache frequency and symptoms after beginning medications - Follow-up with neurology in 12 weeks as scheduled Vision screen with abnormal findings 12/31/2020 Assessment & Plan (05/24/2021 12:59 PM CREDIT COORDINATOR): Vision screen today showed right eye 20/40, left eye 20/50, both eyes 20/40. Never worn glasses. Has an appointment scheduled with the district manager in training in 3 weeks. - Follow up with district manager in training as scheduled Need for community resource 12/31/2020 Assessment & Plan (05/24/2021 1:00 PM CREDIT COORDINATOR): Multiple positive on FWQ questionnaire including clothing, utilities, transportation and food insecurities. - CARES referral Encounter for WCC (well child check) with abnorm al findings 12/31/2020 Assessment & Plan (05/24/2021 1:01 PM CREDIT COORDINATOR): Keerthi Palomino is here for her adolescent well child check and has normal growth with excess interval weight gain and normal development. Immunizations up to date per mom, paperwork from previous PCP being faxed over Dental referral for prevention Age appropriate anticipatory guidance provided Return in 3 months COVID-19 12/12/2020 Assessment & Plan (12/12/2020 4:54 PM CDT): Assessment: Keerthi Palomino is a 15 year old female with history of asthma who presents for nausea, vomiting, diarrhea, myalgias, and headache in the setting of acute Covid-19 infection confirmed by nasal swab one week prior. Initial workup notable for acidosis consistent with dehydration and is otherwise reassuring. Symptoms are consistent with viral syndrome with gastroenteritis and myalgias d/t Covid-19; there is no evidence of serious bacterial infection, no respiratory symptoms to suggest intrathoracic process (pneumonia, PE), exam essentially normal including pelvic exam to r/o cause of pain (PUD, GC/Chlamydia Negative). She requires admission for IV hydration and pain control. Plan: - Admit to General Medicine: Dr. Mancini - Continue home albuterol and flonase - IVFs with D5LRs at 125 ml/hr - Scheduled toradol, prn tylenol for pain control - vsq8h - strict I/Os - spot check pulse ox - zofran prn - SCDs - Recommended she get up in chair for meals and walk around the room frequently Assessment & Plan (12/12/2020 1:34 AM CDT): Assessment: Keerthi Palomino is a 15 year old female with history of asthma who presents for nausea, vomiting, diarrhea, myalgias, and headache in the setting of acute Covid-19 infection confirmed by nasal swab one week prior. Initial workup notable for acidosis consistent with dehydration and is otherwise reassuring. Symptoms are consistent with viral syndrome with gastroenteritis and myalgias d/t Covid-19; there is no evidence of superimposed bacterial infection, no respiratory symptoms to suggest intrathoracic process (pneumonia, PE), exam essentially normal including pelvic exam to r/o cause of pain (PUD). She requires admission for IV hydration and pain control. Plan: - Admit to General Medicine: Dr. Mancini - Continue home albuterol and flonase - IVFs with D5LRs at 125 ml/hr - prn tylenol/ibuprofen for pain - vsq8h - strict I/Os - spot check pulse ox - zofran prn Acute non-recurrent maxillary sinusitis 12/13/19 Assessment & Plan (12/12/2020 4:50 PM CDT): Assessment: Patient describes pressure like pain as her Headache and points to maxillary sinuses. Pain with tapping on examination. Patient sick with COVID, so could be 2/2 to that. However, she seems to be recovering from the respiratory side of symptoms. Will elect to treat for bacterial sinusitis. Plan: -10 Day Course of Omnicef - Continue Flonase - Will discuss adding on Zyrtec tomorrow Other headache syndrome 12/12/2020 Assessment & Plan (12/12/2020 4:53 PM CDT): Assessment: Patient describes a history of BEY similar to this, but have become more frequent since dajuan COVID, and states that Migraines do run in her family. Her BEY sounds largely related to sinus pressure. However, also endorses a frontal pain that worsens with light and sound which could be consistent with a migraine. She is extremely well appearing on exam. Suspicion for meningitis being contributory is minimal. 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 Diet notable for being a picky eater, fried foods, sweets, and no vegetables. Exercises less than an hour per day. - Discussed diet modifications and increasing exercise - Weight check next visit to assess lifestyle changes - ALT, TSH, Lipid profile, HbA1c Lactose intolerance 05/02/2014 Eczema 05/02/2014 Allergic rhinitis 12/26/2011 Overview (12/26/2011): 12/26/11: allergy SPT + for dust mites, molds, trees, grass, and ragweed. Assessment & Plan (05/24/2021 1:01 PM CREDIT COORDINATOR): Previously followed with [facility]. Allergy tested in 2011 and received allergy shots for a couple years, stopped in 2017. Has symptoms of sneezing, congestion, rhinorrhea, tension headaches and cough. Takes Xyzal daily with minimal relief. Allergies currently not well controlled. - Referral to pediatric allergy - Begin daily Flonase Allergic conjunctivitis 12/26/2011 Reactive airway disease 12/26/2011 Overview (12/26/2011): Cough variant Headache 12/26/2011 Overview (02/01/2015): Sinus pressure vs migraine Resolved Problems Problem Noted Date Diagnosed Date Resolved Date Vision exam with abnormal findings 12/31/2020 12/31/2020 Dehydration 12/12/2020 12/26/2020 Assessment & Plan (12/12/2020 4:47 PM CDT): Assessment: Patient endorses not having drank much over the past week and has some lightheadedness with standing. Labs on admission significant for a metabolic acidosis consistent with dehydration. Plan: - Obtain Orthostats - Repeat BMP Reactive airways dysfunction syndrome 12/26/2011 12/26/2011 Immunizations Immunization Administration Dates Next Due INFLUENZA VACCINE, TRIV. (AF LURIA, FLUZONE TRIVALENT; 6MO+) (IIV3) 02/17/2015 DTAP/HEP B/IPV 03/01/2007 DTAP/IPV 10/15/2009 DTaP VACCINE IM (6wk-6yrs) 11/08/2008,10/25/2007 HEP A PEDS 2 DOSE 09/15/2017,11/07/2016 HEP B VACCINE, PED/ADOL 07/15/2016,10/28/2015 HIB-HAEMOPHILUS INFLUENZAE B CONJUGATE VACCINE 03/01/2007 Human Papilloma Virus Ninevalent Vaccine 021,07/15/2016,10/21/2015 INFLUENZA VACCINE 01/30/2010 MENINGOCOCAL MENINGITIS 11/07/2016 MENINGOCOCCAL ACWY (MCV4P) VAC IM 09/13/2014 MENINGOCOCCAL ACWY MENVEO 09/02/2014 MMR 10/15/2009 MMR/VARICELLA 03/01/2007 PNEUMOCOCCAL PCV7 CONJ, PEDS 10/25/2007 POLIO IPV 10/25/2007 TDAP (7yrs+) 10/21/2015 VARICELLA 09/02/2014 Family History Medical History Relation Name Comments Asthma Brother Asthma Maternal Grandmother CAD (Coronary Artery Disease) Neg Hx Diabetes - Type 1 Neg Hx Diabetes - Type 2 Neg Hx Relation Name Status Comments Brother Maternal Grandmother Social History Tobacco Use Types Packs/Day Years Used Date Smoking Tobacco: Never Smokeless Tobacco: Never Alcohol Use Standard Drinks/Week Comments Never 0 (1 standard drink = 0.6 oz pur e alcohol) Comments No Sex and Gender Information Value Date Recorded Sex Assigned at Not on file Legal Sex Female 5:45 AM CREDIT COORDINATOR Gender Identity Not on file Sexual Orientation Not on file Last Filed Vital Signs Vital Sign Reading Time Taken Comments Blood Pressure 122/84 06/20/2023 5:00 PM CDT Pulse 87 06/20/2023 5:00 PM CDT Temperature 36.4 C (97.6 F) 06/20/2023 5:00 PM CDT Respiratory Rate 20 06/20/2023 5:00 PM CDT Oxygen Saturation 100% 06/20/2023 5:00 PM CDT Inhaled Oxygen Concentration - - Weight 104.8 kg (231 lb) 06/20/2023 5:00 PM CDT Height 153.2 cm (5' 0.32) 12/31/2020 1:53 PM CD T Body Mass Index - - Plan of Treatment Health Maintenance Due Date Last Done Comments HIV SCREENING 2020 MENINGOCOCCAL (Group B) VACCINE SHARED DECISION-MAKING (1 of 2 - Standard) 2021 CHLAMYDIA/GONORRHEA SCREENING 12/08/2022 12/08/2021, 12/12/2020 HEPATITIS C SCREENING 07/14/2023 DEPRESSION SCREENING 03/27/2024 12/31/2020 COVID-19 VACCINE ( - season) 2024 INFLUENZA VACCINE (#1) 2024 , 02/17/2015, 01/30/2010 DTAP/TDAP/TD VACCINES (6 - Td or Tdap) 10/20/2025 10/21/2015, 10/15/2009, 11/08/2008, Additional history exists ZOSTER VACCINE (1 of 2) 07/19/2055 HIB VACCINE Completed 03/01/2007 PNEUMOCOCCAL VACCINE Completed 10/25/2007 HEPATITIS B VACCINE Completed 07/15/2016, 10/28/2015, 03/01/2007 MENINGOCOCCAL GROUPS A/C/Y/W VACCINE Aged Out 11/07/2016, 09/13/2014, 09/02/2014 No longer eligible based on patient's age to complete this topic HPV VACCINE Completed 10/06/2020, /03/2016, 10/21/2015 Procedures Procedure Name Priority Date/Time Associated Diagnosis Comments CHLAMYDIA + GC AMPLIFIED PROBE STAT 12/12/2020 12:25 AM CDT from Last 3 Months or Most Recently Relevant to Health Maintenance Results * CHLAMYDIA + GC AMPLIFIED PROBE (STL) (12/12/2020 12:25 AM CDT) Chlamydia Amplified Probe Negative Negative 12/12/2020 11:01 AM CDT [facility] GC Amplified Probe Negative Negative 12/12/2020 11:01 AM CDT [facility] Microbiology URINE / Unknown Collection / Unknown 12/12/2020 12:25 AM CDT 12/12/2020 12:48 AM CDT Narrative [facility] - 12/12/2020 11:01 AM CDT Results based on detection/no detection of ribosomal RNA by amplified method. Danuta Zimmerman CHILD AND FAMILY SERVICES SPECIALIST-HR ASSOCIATE LAB - MICROBIOLOGY OR DERABLES Final Result [facility] [address] [place] [address], [facility] [phone] from Last 3 Months or Most Recently Relevant to Health Maintenance Insurance [facility] Advance Directives * Full Code (Latest Code Status on File) Date Activated Date Inactivated Comments 12/12/2020 2:18 AM 12/13/2020 3:16 PM Care Teams Greenhouse Specialist Relationship Specialty Start Date End Date Herman Beach MD [address] [place] [address] [address] [place] [address] PCP - General Family Medicine 06/20/23
[2025-02-01] MEDS: BACITRACIN ZINC OINTMENT 0.9 GRAM PACKET 1 PACKET TOPICAL (04:51)
== END 2025-02-01 05:02 | disposition home or self-care (01) ==
LOC: ANHED 04:48
PROVIDERS: Emergency Provider Emergency Medicine
DX: S69.92XA Unspecified injury of left wrist, hand and finger(s), initial encounter (principal); S69.91XA Unspecified injury of right wrist, hand and finger(s), initial encounter; Y04.0XXA Assault by unarmed brawl or fight, initial encounter
CPT/HCPCS: 99283; A9270